=== PATIENT | female | born 1960 | race Caucasian/White ===

== ENCOUNTER 2020-01-07 16:22 | Emergency (ER) | payer OTHER, SELFPAY ==
--- NOTE | ~2020-01-07 | XR_ITS ---
EXAMINATION: XR chest 1V portable EXAM DATE: 01/07/2020 17:14 INDICATION: Cough, shortness of breath. TECHNIQUE: Frontal and lateral projections of the chest obtained and reviewed. Comparison is made to prior examination from 06/14/2016. FINDINGS: At least moderate emphysema, large left apical bullous disease unchanged. No confluent cons olidation, pneumothorax or pleural effusion suspected. The bones are osteopenic. There are bony dege nerative changes. Thoracolumbar compression fractures which have been treated with methylmethacrylate injection. There is no significant interval change. IMPRESSION: 1. Emphysema, bullous disease. 2. No acute cardiopulmonary findings. Reviewed, dictated and finalized at location [facility].
[2020-01-07 16:29] VITALS: PULSE 103; RESP 34; TEMP 36.6; O2SAT 98
--- NOTE | 2020-01-07 16:35 | ECG_ITS ---
Measurements Intervals [place] Rate: 102 P: 76 MO: 135 QRS: 62 QRSD: 84 T: 61 QT: 312 QTc: 407 Interpretive Statements SINUS TACHYCARDIA BASELINE ARTIFACT- AVL, V5-V6 BORDERLINE ECG Electronically Signed On 01-09-2020 8:36:49 CDT by Luke Mike D.O.
--- NOTE | 2020-01-07 16:39 | ED.SOB ---
HPI - SOB/Dyspnea General Chief Complaint: Shortness of Breath/Dyspnea <Francisca Griffith PA-C - Last Filed: 01/07/20 19:32> Stated Complaint: SOB HX COPD <Francisca Griffith PA-C - Last Filed: 01/07/20 19:32> Time Seen by Provider: 01/07/20 16:32 <Francisca Griffith PA-C - Last Filed: 01/07/20 19:32> Source: patient <JOSE DAVID Dorman Last Filed: 01/07/20 19:32> Mode of arrival: wheelchair <JOSE DAVID Dorman Last Filed: 01/07/20 19:32> Limitations: no limitations <JOSE DAVID Dorman Last Filed: 01/07/20 19:32> History of Present Illness HPI Narrative: This is a 59 year old female that presents to the ER for shortness of breath for the last week. Reports worsening yesterday. Reports a nonproductive cough that is normal for her with COPD. Also reports some rhinorrhea and sore throat. Denies fever or chest pain. <JOSE DAVID Dorman Last Filed: 01/07/20 19:32> Related Data Allergies/Adverse Reactions: Allergies Allergy/AdvReac Type Severity Reaction Status Date / Time aspirin Allergy Unknown UNKNOWN Verified 07/24/17 18:41 codeine Allergy Unknown Verified 06/14/16 12:31 ibuprofen Allergy Unknown Verified 06/14/16 12:31 iodine Allergy Unknown Verified 06/14/16 12:31 <Francisca Griffith PA-C - Last Filed: 01/07/20 19:32> Review of Systems Review of Systems: Narrative: CONSTITUTIONAL: Denies fever ENT: Reports rhinorrhea, congestion, sore throat CARDIOVASCULAR: Denies chest pain RESPIRATORY: Reports cough and dyspnea. <JOSE DAVID Dorman Last Filed: 01/07/20 19:32> All systems reviewed & are unremarkable except as noted in HPI and below <JOSE DAVID Dorman Last Filed: 01/07/20 19:32> PMFSH Past Medical History Medical History: Medical History (Updated 01/07/20 @ 19:30 by Francisca Griffith PA-C) History of COPD History of degenerative disc disease History of depression History of DVT (deep vein thrombosis) History of pulmonary embolism <Francisca Griffith PA-C - Last Filed: 01/07/20 19:32> Surgical History Surgical History: Surgical History (Updated 01/07/20 @ 17:09 by Francisca Griffith PA-C) History of appendectomy History of hysterectomy History of tonsillectomy <Francisca Griffith PA-C - Last Filed: 01/07/20 19:32> Social History Social History: Social History (Updated 01/07/20 @ 17:09 by Francisca Griffith PA-C) Smoking status: Current every day smoker <Francisca Griffith PA-C - Last Filed: 01/07/20 19:32> Exam Narrative: Exam Narrative: GENERAL: Well-appearing, thin, and in acute distress due to shortness of breath. HEAD: Normocephalic, atraumatic. EYES: EOMI. ENT: Nares clear, no rhinorrhea or epistaxis. Mucous membranes moist. Oropharynx without tonsillar hypertrophy exudate or other lesions. Bilateral TMs pearly zhao non-bulging NECK: Supple. No adenopathy or masses. CHEST: Tachypneic. Diffuse wheezes. No rales or rhonchi HEART: Regular rate and rhythm. No murmur heard. Normal peripheral pulses. EXTREMITIES: Normal range of motion. No edema. SKIN: Warm, dry, no rash. NEURO: No focal deficits. Alert and oriented x3. PSYCH: Normal mood and affect <Francisca Griffith PA-C - Last Filed: 01/07/20 19:32> Course Reevaluation(s) Reevaluation #1: Patient's lungs with improved aeration, now with only mild scattered wheezes <Francisca Griffith PA-C - Last Filed: 01/07/20 19:32> Date: 01/07/20 <Francisca Griffith PA-C - Last Filed: 01/07/20 19:32> Time: 19: <Francisca Griffith PA-C - Last Filed: 01/07/20 19:32> Vital Signs Vital signs: Vital Signs Temperature 36.6 C 01/07/20 16:29 Pulse Rate 103 H 01/07/20 16:29 Respiratory Rate 34 H 01/07/20 16:29 Pulse Oximetry 98 01/07/20 16:29 Temperature 36.7 C 01/07/20 19:47 Pulse Rate 98 01/07/20 19:47 Respiratory Rate 22 H 01/07/20 19:47 Blood Pressure 106/57 L 01/07/20 19:47 Pulse Oximetry 96 01/07/20 19:47 <Francisca L
[2020-01-07 16:45] VITALS: PULSE 86; RESP 28
[2020-01-07 17:01] LABS: Basophils Absolute Auto 0.1 K/mm3 (0.0-0.1); Basophils Percent Auto 1.2 % (0.2-1.2); Eosinophils Absolute Auto 0.3 K/mm3 (0-0.3); Eosinophils Percent Auto 2.4 % (0-4.4); Hematocrit 44.6 % (37.0-47.0); Hemoglobin 14.6 g/dL (12.0-15.0); Immature Granulocyte Absolute 0.02 K/mm3 (0.00-0.031); Immature Granulocyte Percent A 0.2 % (0-0.5); Lymphocytes Absolute Auto 5.14 K/mm3 (0.9-3.2); Lymphocytes Percent Auto 48.9 % (18.3-44.2); Mean Corpuscular HGB Conc 32.7 g/dl (32-36); Mean Corpuscular Hemoglobin 30.1 pg (26-34); Mean Platelet Volume 9.6 fl (7.4-10.4); Monocytes Percent Auto 9.8 % (2.6-8.5); Neutrophils Percent Auto 37.5 % (45.5-73.1); Platelet Count Result 488 k/mm3 (150-375); Red Blood Count 4.85 M/mm3 (4.2-5.4); Red Cell Distribution Width 12.5 % (11.5-14.5); White Blood Count 10.5 K/mm3 (4.5-10.0)
[2020-01-07] MEDS: methylPREDNISolone SOD SUCC 125 MG VIAL IV PUSH (17:14)
[2020-01-07 17:15] LABS: Alanine Aminotransferase 18 U/L (4-35); Albumin Level 4.3 g/dL (3.5-5.1); Alkaline Phosphatase 63 U/L (38-126); Aspartate Amino Transferase 22 U/L (14-36); Bilirubin,Total 0.2 mg/dL (0.2-1.3); Blood Urea Nitrogen 19 mg/dL (7-17); CRP 0.9 mg/dL (<1.0); Calcium 9.4 mg/dL (8.4-10.2); Carbon Dioxide 29 mmol/L (22-30); Chloride 102 mmol/L (98-107); Estimated CRCL calculation 57 ml/min; Estimated Glomerular Filt Rate > 60; Glucose 73 mg/dL (65-105); Lactate Dehydrogenase 345 U/L (313-618); Potassium 4.1 mmol/L (3.4-5.0); Sodium 137 mmol/L (137-145)
[2020-01-07 17:20] LABS: Alveolar/Arterial O2 Gradient 25.7 mmHg; Base Excess ABG 1.8 mEq/l (+/-2.0); Device ROOM AIR; Fractional Inspired Oxygen 21 %; HCO3 ABG 27.4 mEq/l (22.0-26.0); Oxygen Content ABG 18.8 %vol (16.0-22.0); Oxygen Saturation ABG 93.2 % (95.0-100.0); Oxyhemoglobin 91.7 % THb (90.0-100.0); PCO2 ABG 46.8 mmHg (35.0-45.0); PO2 FiO2 Ratio Arterial Blood 3.24 %; Site Drawn RIGHT BRACHIAL; Total Hemoglobin 14.6 g/dL (12.0-18.0); pH ABG 7.386 (7.350-7.450)
[2020-01-07] MEDS: ALBUTEROL SULFATE NEB 2.5 MG/0.5 ML INH 5 MG INHALATION (17:46)
[2020-01-07] MEDS: IPRATROPIUM BR 0.02% INH SOLN 0.5 MG/2.5 ML VIAL INHALATION (17:47)
[2020-01-07 17:48] VITALS: PULSE 90; RESP 24
[2020-01-07] MEDS: IPRATROPIUM BR 0.02% INH SOLN 0.5 MG/2.5 ML VIAL 1 MG INHALATION (18:10)
[2020-01-07] MEDS: ALBUTEROL SULFATE NEB 2.5 MG/0.5 ML INH 10 MG INHALATION (18:10)
[2020-01-07 19:25] VITALS: BP 105/69; PULSE 98; RESP 22; O2SAT 96
[2020-01-07 19:47] VITALS: BP 106/57; PULSE 98; RESP 22; TEMP 36.7; O2SAT 96
== END 2020-01-07 19:48 | disposition home or self-care (01) ==
PROVIDERS: Physician Assistant; Emergency Provider Emergency Medicine; PCP Family Medicine
DX: J44.9 Chronic obstructive pulmonary disease, unspecified (principal); Z86.718 Personal history of other venous thrombosis and embolism; Z86.11 Personal history of tuberculosis; F17.200 Nicotine dependence, unspecified, uncomplicated
CPT/HCPCS: 36415; 36600; 71045; 80053; 82728; 82805; 83605; 83615; 85025; 86140; 93005; 94640; 96374; 99284; J2930

== ENCOUNTER 2020-02-15 01:22 | Emergency (ER) | payer OTHER, SELFPAY ==
--- NOTE | ~2020-02-15 | CT_ITS ---
EXAMINATION: CT brain wo con DATE: 02/15/2020 02:44 INDICATION: Headache. TECHNIQUE: Computed tomography (CT) of the head was performed without intravenous contrast. The mA wa s adjusted according to patient size. Iterative reconstruction technique was employed. Exam dose: 60 5.33 mGy-cm total exam DLP. COMPARISON: None FINDINGS: Examination is limited by streak motion artifact. There is There are bilateral carotid siphon internal carotid artery calcifications. No intracranial mass lesion or hemorrhage or cerebrovascular accident is evident. No midline shift or mass effects. Normal ventricular size. No subdural or epidural hematoma. No orbital mass lesion. No fracture or bone destruction of the cranial vault. Focal opacification of the anterior right ethmoid region. The paranasal sinuses and mastoid air cells are otherwise unremarkable. IMPRESSION: No significant acute intracranial abnormality Cerebral atherosclerosis Reviewed, dictated and finalized at [facility]. Reviewed, dictated and finalized at location [facility].
[2020-02-15 01:29] VITALS: BP 106/58; PULSE 117; RESP 32; TEMP 36.8; O2SAT 96
--- NOTE | 2020-02-15 01:33 | ECG_ITS ---
Measurements Intervals [place] Rate: 114 P: 76 [place]: 123 QRS: 75 QRSD: 86 T: 69 QT: 323 QTc: 446 Interpretive Statements SINUS TACHYCARDIA BASELINE ARTIFACT- I, III, AVL, V2-V6 ABNORMAL ECG Electronically Signed On 02-15-2020 7:56:14 CDT by Luke Mike D.O.
--- NOTE | 2020-02-15 01:38 | ED.GENADULT ---
HPI - General Adult General Chief complaint: Shortness of Breath/Dyspnea Stated complaint: SOB/TAO Time Seen by Provider: 02/15/20 01:26 History of Present Illness HPI narrative: Patient presents via EMS for acute psychosis. She woke her up at home and told him that he should do all these things when she dies. She had friends over and he suspects they did drugs including methamphetamines. She cannot sit still, she is complaining of a headache, she is shaking her arms and legs, her mouth appears to have action similar to tar dive dyskinesia, she has no teeth, and she is complaining of a headache. She said she took 3 breathing treatments and that is what is making her so jittery. Onset (ago): hour(s) Severity: severe Related Data Allergies Allergy/AdvReac Type Severity Reaction Status Date / Time aspirin Allergy Unknown UNKNOWN Verified 07/24/17 18:41 codeine Allergy Unknown Verified 06/14/16 12:31 ibuprofen Allergy Unknown Verified 06/14/16 12:31 iodine Allergy Unknown Verified 06/14/16 12:31 Review of Systems Review of Systems: Narrative: Unable to get a full review of systems due to the patient's acute mental status. [facility] Past Medical History Medical History History of COPD History of degenerative disc disease History of depression History of DVT (deep vein thrombosis) History of pulmonary embolism Surgical History Surgical History History of appendectomy History of hysterectomy History of tonsillectomy Social History Social History (Updated 02/15/20 @ 01:40 by Bertha Gross MD) Smoking status: Current every day smoker Substance use: current Substance use type: methamphetamine Exam Narrative: Exam Narrative: GENERAL: Cachectic woman with disheveled hair and no teeth, tar dive dyskinesia, cannot stop moving her arms and legs, speaks in short sentences and few words. HEAD: Normocephalic, atraumatic. EYES: PERRLA and EOMI. right eye remains shut. ENT: Nares clear, no rhinorrhea or epistaxis. Mucous membranes moist. NECK: Supple. CHEST: Clear to auscultation. No respiratory distress. HEART: Regular rate and rhythm. No murmur heard. Normal peripheral pulses. ABDOMEN: Soft, nontender, nondistended, normal active bowel sounds. EXTREMITIES: Normal range of motion. No edema. SKIN: Warm, dry, no rash. NEURO: No focal deficits. Alert. PSYCH: Manic. Course Reevaluation(s) Reevaluation #1: Woke the patient up and asked if she is feeling better, and asked if she wanted to go home, she says yes. Date: 02/15/20 Time: 03:24 Vital Signs Vital signs: Vital Signs Temperature 98.2 F 02/15/20 01:29 Pulse Rate 117 H 02/15/20 01:29 Respiratory Rate 32 H 02/15/20 01:29 Blood Pressure 106/58 L 02/15/20 01:29 Pulse Oximetry 96 02/15/20 01:29 Temperature 98.2 F 02/15/20 01:29 Pulse Rate 117 H 02/15/20 01:29 Respiratory Rate 32 H 02/15/20 01:29 Blood Pressure 106/58 L 02/15/20 01:29 Pulse Oximetry 96 02/15/20 01:29 Medical Decision Making Medical Records Medical records reviewed: Yes I reviewed the patient's medical records. Vital Signs Vital Signs: Vital Signs Temperature 98.2 F 02/15/20 01:29 Pulse Rate 117 H 02/15/20 01:29 Respiratory Rate 32 H 02/15/20 01:29 Blood Pressure 106/58 L 02/15/20 01:29 Pulse Oximetry 96 02/15/20 01:29 Temperature 98.2 F 02/15/20 01:29 Pulse Rate 117 H 02/15/20 01:29 Respiratory Rate 32 H 02/15/20 01:29 Blood Pressure 106/58 L 02/15/20 01:29 Pulse Oximetry 96 02/15/20 01:29 Lab Data Lab results reviewed: Yes I reviewed the patient's lab results. Result diagrams: 02/15/20 01:41 02/15/20 01:41 Labs: Lab Results 02/15/20 02/15/20 02/15/20 Range/Units 01:41 01:41 01:41 WBC 17.6 H (4.5-10.0) K/mm3 RBC 4.40 (4.2-5.4) M/mm3 Hgb 13.4 (12.0-15.0) g/dL Hct
[2020-02-15] MEDS: SODIUM CHLORIDE 0.9% IV 1,000 ML 999 ML IV CONT (01:43)
[2020-02-15] MEDS: LORAZEPAM INJ 2 MG/ML VIAL 0.5 MG IV PUSH (01:43)
[2020-02-15 01:47] LABS: Basophils Absolute Auto 0.1 K/mm3 (0.0-0.1); Basophils Percent Auto 0.8 % (0.2-1.2); Eosinophils Absolute Auto 0.3 K/mm3 (0-0.3); Eosinophils Percent Auto 1.6 % (0-4.4); Hematocrit 40.4 % (37.0-47.0); Hemoglobin 13.4 g/dL (12.0-15.0); Immature Granulocyte Absolute 0.05 K/mm3 (0.00-0.031); Immature Granulocyte Percent A 0.3 % (0-0.5); Lymphocytes Absolute Auto 5.35 K/mm3 (0.9-3.2); Lymphocytes Percent Auto 30.3 % (18.3-44.2); Mean Corpuscular HGB Conc 33.2 g/dl (32-36); Mean Corpuscular Hemoglobin 30.5 pg (26-34); Mean Corpuscular Volume 91.8 fl (80-100); Mean Platelet Volume 9.6 fl (7.4-10.4); Monocytes Absolute Auto 1.7 K/mm3 (0.1-0.6); Monocytes Percent Auto 9.9 % (2.6-8.5); Neutrophils Absolute Auto 10.1 K/mm3 (1.3-6.7); Neutrophils Percent Auto 57.1 % (45.5-73.1); Platelet Count Result 530 k/mm3 (150-375); Red Cell Distribution Width 12.5 % (11.5-14.5); White Blood Count 17.6 K/mm3 (4.5-10.0)
[2020-02-15 02:03] LABS: Alanine Aminotransferase 20 U/L (4-35); Albumin Level 4.3 g/dL (3.5-5.1); Alkaline Phosphatase 62 U/L (38-126); Aspartate Amino Transferase 36 U/L (14-36); Bilirubin,Total 0.7 mg/dL (0.2-1.3); Blood Urea Nitrogen 35 mg/dL (7-17); Carbon Dioxide 26 mmol/L (22-30); Chloride 104 mmol/L (98-107); Estimated CRCL calculation 52 ml/min; Estimated Glomerular Filt Rate > 60; Glucose 102 mg/dL (65-105); Potassium 4.5 mmol/L (3.4-5.0); Sodium 136 mmol/L (137-145)
[2020-02-15 02:14] LABS: Troponin I < 0.012 ng/mL (0.000-0.034)
[2020-02-15 02:19] LABS: Barbiturate Screen Urine Negative (Negative); Benzodiazepines Screen Urine Negative (Negative)
[2020-02-15 02:21] LABS: Ethanol < 10 mg/dL (<10)
[2020-02-15 02:24] LABS: Cannabinoid Screen Urine Positive (Negative); Cocaine Screen Urine Negative (Negative); Methadone Screen Urine Negative (Negative); Opiate Screen Urine Positive (Negative); Phencyclidine Screen Urine Negative (Negative)
[2020-02-15 02:32] LABS: Amphetamine Screen Urine Positive (Negative)
[2020-02-15 02:34] LABS: Add Urine Microscopic? YES; Appearance Urine Clear (Clear); Bilirubin Urine Negative (Negative); Blood Urine Negative (Negative); Color Urine Yellow (Yellow); Glucose Urine UA Negative (Negative); Ketones Urine Trace mg/dL (Negative); Leukocyte Esterase Ur Negative LEU/UL (Negative); Mucus Urine Rare /lpf; Nitrate Urine Negative (Negative); Protein Urine Negative (Negative); Squamous Epithelial Cell Urine Rare /hpf (Few); Urobilinogen Urine Negative mg/dL (<2.0); WBC Urine 0-3 /hpf
[2020-02-15 03:50] VITALS: BP 96/76; PULSE 98; RESP 18; O2SAT 97
== END 2020-02-15 03:51 | disposition home or self-care (01) ==
PROVIDERS: Emergency Provider Emergency Medicine; PCP Family Medicine
DX: F15.10 Other stimulant abuse, uncomplicated (principal); J44.1 Chronic obstructive pulmonary disease with (acute) exacerbation; Z86.718 Personal history of other venous thrombosis and embolism; Z86.711 Personal history of pulmonary embolism; F17.200 Nicotine dependence, unspecified, uncomplicated; R00.0 Tachycardia, unspecified
CPT/HCPCS: 36415; 51701; 70450; 80053; 80307; 81001; 84484; 85025; 93005; 96361; 96374; 99284; J2060; J7030

== ENCOUNTER 2023-05-29 17:40 | Emergency (ER) | payer OTHER, SELFPAY ==
[2023-05-29 17:43] VITALS: BP 173/76; PULSE 113; RESP 28; TEMP 36.7; O2SAT 83
--- NOTE | 2023-05-29 17:45 | ED.GENADULT ---
HPI - General Adult General Chief complaint: Shortness of Breath/Dyspnea Stated complaint: SOB Time Seen by Provider: 05/29/23 17:45 Source: patient, RN notes reviewed and old records reviewed Mode of arrival: ambulatory Limitations: no limitations History of Present Illness HPI narrative: 62-year-old female with a history of COPD and is a current smoker presents for shortness of breath. Patient states it has been going on for 4 days since she fell off a step stool and hit the front of her chest. Audible wheezing and coarseness noted. No more than 1 or 2 words at a sentence. Patient appears toxic, pale, lips were cyanotic Onset (ago): day(s) (4) Treatments prior to arrival: none Related Data Home Medications Medication Instructions Recorded Confirmed albuterol sulfate 90 mcg/actuation 2 puff inhalation Q6-8H PRN sob 05/29/23 05/29/23 aerosol inhaler buspirone 15 mg tablet 15 mg PO DAILY 05/29/23 05/29/23 fluticasone 250 mcg-salmeterol 50 1 inh inhalation DAILY 05/29/23 05/29/23 mcg/dose blistr powdr for inhalation (Advair Diskus) fluticasone propionate 50 2 spray intranasal DAILY 05/29/23 05/29/23 mcg/actuation nasal spray,suspension montelukast 10 mg tablet 10 mg PO DAILY 05/29/23 05/29/23 Allergies Allergy/AdvReac Type Severity Reaction Status Date / Time aspirin Allergy Unknown UNKNOWN Verified 05/29/23 18:07 codeine Allergy Unknown Unknown Verified 05/29/23 18:07 ibuprofen Allergy Unknown Unknown Verified 05/29/23 18:07 iodine Allergy Unknown Unknown Verified 05/29/23 18:07 Review of Systems Review of Systems: All systems reviewed & are unremarkable except as noted in HPI and below Constitutional: Constitutional: Reports no additional constitutional complaints Eyes: Eyes: Reports no additional eye complaints ENT: Reports system reviewed and no additional complaints, except as documented Cardiovascular: Cardiovascular: Reports as per HPI, Reports chest pain and Denies dyspnea Respiratory: Respiratory: Reports as per HPI, Denies chest congestion, Denies cough, Reports excessive phlegm production, Reports pain on inspiration, Reports pain with cough, Reports dyspnea, Reports dyspnea on exertion and Reports wheezing Gastrointestinal: Gastrointestinal: Reports no additional gastrointestinal complaints, Denies abdominal pain, Denies nausea and Denies vomiting Musculoskeletal: Musculoskeletal: Reports no additional musculoskeletal complaints Integumentary/Breasts: Skin/Breast: Reports system reviewed and no additional complaints, except as docu Neurologic: Reports system reviewed and no additional complaints, except as documented Psychiatric: Psychiatric: Reports no additional psychiatric complaints Allergic/Immunologic: Allergic/Immunologic: Reports no additional allergic/immunologic complaints [facility] Past Medical History Medical History History of COPD History of degenerative disc disease History of depression History of DVT (deep vein thrombosis) History of pulmonary embolism Surgical History Surgical History History of appendectomy History of hysterectomy History of tonsillectomy Social History Social History Smoking status: Current every day smoker Substance use: current Substance use type: methamphetamine Comments At the time of my signature, I reviewed and agree with the nursing past medical, surgical, social, and family history. There is no relevant family history pertinent to the patient complaint. Exam Const: General: cooperative, no acute distress, well developed, alert, ill appearing and uncomfortable Nutritional Appearance: thin Orientation/consciousness: patient oriented x3 Limitations: no limitations HENMT: Head: normal to inspection Ears: hearing grossly normal bilaterally and external ears normal
[2023-05-29] MEDS: ALBUTEROL SULFATE NEB 2.5 MG/3 ML INH INHALATION (17:48)
[2023-05-29] MEDS: IPRATROPIUM BR 0.02% INH SOLN 0.5 MG/2.5 ML VIAL INHALATION (17:48)
--- NOTE | 2023-05-29 19:03 | ECG_ITS ---
Measurements Intervals [place] Rate: 112 P: 78 [place]: 120 QRS: 61 QRSD: 83 T: 73 QT: 315 QTc: 431 Interpretive Statements SINUS TACHYCARDIA VENTRICULAR PREMATURE COMPLEXES RIGHT ATRIAL ENLARGEMENT POSSIBLE LEFT ATRIAL ENLARGEMENT BASELINE ARTIFACT- I, II, III, AVR, AVL, AVF, V1-V2 ABNORMAL ECG COMPARED TO ECG 02/15/2020 01:31:23 NO SIGNIFICANT CHANGES Electronically Signed On 05-30-2023 6:20:36 CDT by Luke Mike D.O.
== END 2023-05-29 17:48 | disposition short-term general hospital (02) ==
PROVIDERS: Emergency Provider Nurse Practitioner; PCP Family Medicine
DX: R06.03 Acute respiratory distress (principal); R94.31 Abnormal electrocardiogram [ECG] [EKG]; F17.290 Nicotine dependence, other tobacco product, uncomplicated; J44.9 Chronic obstructive pulmonary disease, unspecified; Z86.718 Personal history of other venous thrombosis and embolism; Z86.711 Personal history of pulmonary embolism; F32.A Depression, unspecified
CPT/HCPCS: 93005; 94640; 99215; G0463

== ENCOUNTER 2023-05-29 18:07 | Inpatient (IN) | payer OTHER, SELFPAY ==
[2023-05-29] VITALS (9 sets, daily range): BP systolic 118–137; BP diastolic 71–87; PULSE 102–117; RESP 21–32; TEMP 36.2–36.8; O2SAT 93–98; BMI 15.7
--- NOTE | ~2023-05-29 | XR_ITS ---
XR chest 1V portable DATE: 05/29/2023 18:43 INDICATION: Shortness of breath TECHNIQUE: Portable AP chest on 05/29/2023 at 1842 hours COMPARISON: January 07, 2020 portable AP chest at 1713 hours FINDINGS: Bilateral hyperinflation relatively sparse vasculature in the upper lobes, consistent with bullous emphysema. Since January 07, 2020 hours. She infiltrate in the right mid and both lower lung zones. Differential d iagnosis includes pneumonia and pulmonary edema. Heart size is likely within normal limits. Is aortic calcification. Diffuse osteopenia. Multiple thoracic spine fractures. Status post vertebroplasty at T9, T10, L1 and L3. IMPRESSION: Patchy infiltrate in the right mid and both lower lung zones; diffusion diagnosis include s bilateral pneumonia, pulmonary edema is bullous emphysema Reviewed, dictated and finalized at location [facility]. IMPRESSION: Patchy infiltrate in the right mid and both lower lung zones; diffu andriy diagnosis includes bilateral pneumonia, pulmonary edema is bullous emphyse ma
--- NOTE | 2023-05-29 18:17 | ECG_ITS ---
Measurements Intervals [place] Rate: 110 P: 75 [place]: 130 QRS: 61 QRSD: 81 T: 72 QT: 332 QTc: 450 Interpretive Statements SINUS TACHYCARDIA VENTRICULAR TRIGEMINY POSSIBLE RIGHT ATRIAL ENLARGEMENT POSSIBLE LEFT ATRIAL ENLARGEMENT ABNORMAL ECG COMPARED TO ECG 05/29/2023 17:47:00 NO SIGNIFICANT CHANGES Electronically Signed On 05-30-2023 6:24:33 CDT by Luke Mike D.O.
--- NOTE | 2023-05-29 18:18 | ED.SOB ---
HPI - SOB/Dyspnea General Chief Complaint: Shortness of Breath/Dyspnea Stated Complaint: SOB Source: patient, EMS, RN notes reviewed and old records reviewed Mode of arrival: EMS History of Present Illness HPI Narrative: This is a 62 year old female with history of COPD who presents for evaluation of shortness of breath. PAtient reports that she accidentally fell 4 days ago hitting her chest . She reports she has been having pain and shortness of breath since this fall. She has been using neb tx at home without relief. She went to urgent care today and her oxygen saturation was 80% on room air. Patient denies chronic oxygen use. She was given DuoNeb at . EMS reports patient was tachypneic, bilateral rales and placed on CPAP. Patient reports she feels better on CPAP Related Data Home Medications Medication Instructions Recorded Confirmed albuterol sulfate 90 mcg/actuation 2 puff inhalation Q6-8H PRN sob 05/29/23 05/29/23 aerosol inhaler buspirone 15 mg tablet 15 mg PO DAILY 05/29/23 05/29/23 fluticasone 250 mcg-salmeterol 50 1 inh inhalation DAILY 05/29/23 05/29/23 mcg/dose blistr powdr for inhalation (Advair Diskus) fluticasone propionate 50 2 spray intranasal DAILY 05/29/23 05/29/23 mcg/actuation nasal spray,suspension montelukast 10 mg tablet 10 mg PO DAILY 05/29/23 05/29/23 Allergies Allergy/AdvReac Type Severity Reaction Status Date / Time aspirin Allergy Unknown UNKNOWN Verified 05/29/23 18:07 codeine Allergy Unknown Unknown Verified 05/29/23 18:07 ibuprofen Allergy Unknown Unknown Verified 05/29/23 18:07 iodine Allergy Unknown Unknown Verified 05/29/23 18:07 Review of Systems Constitutional: Constitutional: Denies weakness Cardiovascular: Cardiovascular: Reports chest pain, Denies syncope, Denies rapid heart rate, Denies irregular heart rhythm, Denies leg edema and Reports dyspnea Respiratory: Respiratory: Denies chest congestion, Denies hemoptysis, Denies excessive phlegm production and Reports dyspnea Gastrointestinal: Gastrointestinal: Denies abdominal pain, Denies hematochezia, Denies diarrhea and Denies vomiting Genitourinary: Genitourinary: Denies hematuria and Denies dysuria Musculoskeletal: Musculoskeletal: Denies joint swelling, Denies loss of height and Denies muscle weakness Neurologic: Denies syncope, Denies focal weakness and Denies weakness PMFSH Past Medical History Medical History (Updated 05/29/23 @ 21:09 by Roes Paulino MD) History of COPD History of degenerative disc disease History of depression History of DVT (deep vein thrombosis) History of pulmonary embolism Surgical History Surgical History History of appendectomy History of hysterectomy History of tonsillectomy Social History Social History Smoking status: Current every day smoker Substance use: current Substance use type: methamphetamine Exam Const: General: alert and ill appearing acutely Nutritional Appearance: thin Orientation/consciousness: patient oriented x3 HENMT: Head: normal to inspection Chest: Other: no chest bruising Resp: Effort & Inspection: labored Auscultation: rhonchi throughout Cardio: Rate: tachycardic Rhythm: regular rhythm Heart sounds: no murmurs GI: GI Palp: Yes Soft to palpation, No Tenderness to palpation present (GI), No Guarding due to palpation present (GI) and No Rigid due to palpation Skin: General skin exam: normal color Rashes: no rashes Wounds: no wounds Neuro: General: patient oriented x3, moves all extremities and CN's II-XI intact bilaterally Extrem: General: normal to inspection Psych: Mental Status: mental status grossly normal Affect: normal affect Attitude: cooperative Course Reevaluation(s) Reevaluation #1: I Discussed with patient that she will be admitted for treatment of pneumonia. She wants to take off BI
[2023-05-29 18:33] LABS: Alveolar/Arterial O2 Gradient 125.7 mmHg; Base Excess ABG -0.2 mEq/l (+/-2.0); Carboxyhemoglobin 1.2 % THb (0-2.0); Fractional Inspired Oxygen 35 %; HCO3 ABG 23.9 mEq/l (22.0-26.0); Methemoglobin ABG 0.1 %THb (0-1.5); Oxygen Saturation ABG 96.1 % (95.0-100.0); Oxyhemoglobin 94.3 % THb (90.0-100.0); PCO2 ABG 37.6 mmHg (35.0-45.0); PO2 ABG 80.1 mmHg (80.0-100.0); PO2 FiO2 Ratio Arterial Blood 2.29 %; Reduced Hemoglobin 4.4 %THb (0-5.0); Total Hemoglobin 15.1 g/dL (12.0-18.0); pH ABG 7.421 (7.350-7.450)
[2023-05-29 18:34] LABS: Device NON-INVASIVE VENT; Modified Allen's Test Pass; Non-Invasive Inspiratory Pressure 10 CMH2O; Non-Invasive Vent Rate 16 /MIN; Site Drawn LEFT RADIAL
[2023-05-29 18:35] LABS: Non-Invasive Expiratory Pressure 5 CMH2O
[2023-05-29] MEDS: ALBUTEROL SULFATE NEB 2.5 MG/3 ML INH 10 MG INHALATION (18:39)
[2023-05-29 19:25] LABS: Basophils Absolute Auto 0.1 K/mm3 (0.0-0.1); Basophils Percent Auto 0.8 % (0.2-1.2); Eosinophils Absolute Auto 0.4 K/mm3 (0-0.3); Eosinophils Percent Auto 2.8 % (0-4.4); Hematocrit 44.7 % (37.0-47.0); Hemoglobin 14.4 g/dL (12.0-15.0); Immature Granulocyte Absolute 0.04 K/mm3 (0.00-0.031); Immature Granulocyte Percent A 0.3 % (0-0.5); Lymphocytes Absolute Auto 3.86 K/mm3 (0.9-3.2); Lymphocytes Percent Auto 25.5 % (18.3-44.2); Mean Corpuscular HGB Conc 32.2 g/dl (32-36); Mean Corpuscular Hemoglobin 29.4 pg (26-34); Mean Corpuscular Volume 91.2 fl (80-100); Monocytes Absolute Auto 1.2 K/mm3 (0.1-0.6); Monocytes Percent Auto 8.1 % (2.6-8.5); Neutrophils Absolute Auto 9.5 K/mm3 (1.3-6.7); Neutrophils Percent Auto 62.5 % (45.5-73.1); Platelet Count Result 485 k/mm3 (150-375); Red Cell Distribution Width 13.1 % (11.5-14.5); White Blood Count 15.1 K/mm3 (4.5-10.0)
[2023-05-29 19:38] LABS: Alanine Aminotransferase 17 U/L (6-35); Albumin Level 4.2 g/dL (3.5-5.1); Alkaline Phosphatase 55 U/L (38-126); Anion Gap 7 mmol/L (8-16); Aspartate Amino Transferase 23 U/L (14-36); Bilirubin,Total 0.5 mg/dL (0.2-1.3); Blood Urea Nitrogen 20 mg/dL (7-17); Carbon Dioxide 26 mmol/L (22-30); Chloride 105 mmol/L (98-107); Estimated CRCL calculation 58 ml/min; Estimated Glomerular Filt Rate > 60; Glucose 96 mg/dL (65-110); Lipase 29 U/L (23-300); Magnesium 2.4 mg/dL (1.6-2.3); Potassium 4.2 mmol/L (3.4-5.0); Sodium 138 mmol/L (137-145)
[2023-05-29 19:39] LABS: Prothrombin Time 13.1 Seconds (11.1-14.7)
[2023-05-29 19:40] LABS: Partial Thromboplastin Time 27.8 SECONDS (22.3-36.8)
[2023-05-29 19:50] LABS: NT Pro B Type Natriuretic Pept 179 pg/mL (19.9-100); Troponin I 0.015 ng/mL (0.000-0.034)
[2023-05-29 20:10] LABS: SARS-CoV-2 RNA PCR Negative (Negative)
[2023-05-29] MEDS: methylPREDNISolone SOD SUCC 125 MG VIAL IV PUSH (20:26)
[2023-05-29] MEDS: SODIUM CHLORIDE 0.9% IV 1,000 ML 999 ML IV CONT (20:27)
[2023-05-29] MEDS: AZITHROMYCIN 500 MG/NS 250 ML 500 MG/250 ML BAG 250 MG IVPB (21:40)
--- NOTE | 2023-05-29 22:45 | PM.IMHP ---
H&P: HPI History of Present Illness Date/Time: 05/29/23 22:45 Chief Complaint: Patient brought to the ER for evaluation from urgent care with? productive cough and shortness of breath which is worsening over the last 4 days Narrative: Our patient is an 62 years old female who is complaining of? shortness of breath with productive cough which began 4 days ago and is slowly getting worse to the point that patient went to the urgent care for evaluation. Her O2 saturations were 80% on room air at urgent care. DuoNeb treatment was given in the urgent care, EMS was called and patient was sent? to the ER for evaluation.? His O2 sats were 90% on room air at home which responded to oxygen via nasal cannula. Workup was done in the ED which showed finding consistent with bilateral pneumonia.? Patient was started on CPAP enroute to the ER. Her O2 sats were 83% on arrival at the ER. Patient was given IV Solu-Medrol, started on IV antibiotics and breathing treatment in the ER and feels a little better.? She is being admitted in the hospital for further medical management. She is underweight with protein calorie malnutrition hence dietary consult given. PTOT consult given to help with her ambulation. Review of Systems Review of Systems: patient complains of worsening shortness of breath, cough, sputum and weakness. She denies any chest pain, palpitations, fever rigor chills, nausea or vomiting All systems reviewed & are unremarkable except as noted in HPI and below PMFSH Past Medical History Medical History (Updated 05/29/23 @ 23:10 by Arun Pepe MD) COPD (chronic obstructive pulmonary disease) History of COPD History of degenerative disc disease History of depression History of DVT (deep vein thrombosis) History of pulmonary embolism Protein calorie malnutrition Surgical History Surgical History History of appendectomy History of hysterectomy History of tonsillectomy Social History Social History Smoking status: Current every day smoker Substance use: current Substance use type: methamphetamine Meds Home Medications and Allergies Home Medications Medication Instructions Recorded Confirmed Type albuterol sulfate 90 mcg/actuation 2 puff inhalation Q6-8H PRN sob 05/29/23 05/29/23 History aerosol inhaler buspirone 15 mg tablet 15 mg PO DAILY 05/29/23 05/29/23 History fluticasone 250 mcg-salmeterol 50 1 inh inhalation DAILY 05/29/23 05/29/23 History mcg/dose blistr powdr for inhalation (Advair Diskus) fluticasone propionate 50 2 spray intranasal DAILY 05/29/23 05/29/23 History mcg/actuation nasal spray,suspension montelukast 10 mg tablet 10 mg PO DAILY 05/29/23 05/29/23 History Allergies Allergy/AdvReac Type Severity Reaction Status Date / Time aspirin Allergy Unknown UNKNOWN Verified 05/29/23 18:07 codeine Allergy Unknown Unknown Verified 05/29/23 18:07 ibuprofen Allergy Unknown Unknown Verified 05/29/23 18:07 iodine Allergy Unknown Unknown Verified 05/29/23 18:07 Vital Signs Vital Signs - 24 hr 05/29/23 18:10 05/29/23 18:16 05/29/23 18:15 Temperature 36.8 C Pulse Rate 115 H 111 H Respiratory Rate 32 H 25 H Blood Pressure 118/82 137/77 Pulse Oximetry 98 98 Oxygen Delivery CPAP BiPAP 05/29/23 18:30 05/29/23 18:54 05/29/23 21:39 Temperature Pulse Rate 110 H 112 H 107 H Respiratory Rate 27 H 32 H 21 H Blood Pressure 119/81 Pulse Oximetry 97 98 Oxygen Delivery BiPAP 05/29/23 22:26 Temperature Pulse Rate 117 H Respiratory Rate 23 H Blood Pressure 131/87 Pulse Oximetry 97 Oxygen Delivery Exam Narrative: PHYSICAL EXAMINATION: Vital signs: Please see the chart General physical exam: patient feels very tired and fatigued, using BiPAP in the ER while sitting in bed Head/eyes: Atraumatic, EOMI, PERRLA ENT: Moist mucous membranes, nasal pa
[2023-05-30] VITALS (22 sets, daily range): BP systolic 107–126; BP diastolic 60–92; PULSE 101–132; RESP 16–25; TEMP 36.1–36.9; O2SAT 91–96; BMI 15.7
[2023-05-30] MEDS: SODIUM CHLORIDE 0.9% IV 1,000 ML 125 ML IV CONT ×2 (00:03→08:11)
--- NOTE | 2023-05-30 00:18 | ADMGEN ---
This patient, Ghazal Ferrera, was admitted to IMU Room 211-01 at 2248. Patient/family oriented to hospital policies and general routines including ID bracelet, bed and alarms, visiting hours, pain management, procedures, bathroom and other care routines, personal items, smoking policy, room service/diet, and visiting hours. Information on how to activate the Rapid Response Team has been discussed. Patient/Family are encouraged to report perceived risks to care and to ask questions if they do not understand what they are told or what they should do.
[2023-05-30] MEDS: ALBUTEROL SULFATE NEB 2.5 MG/3 ML INH INHALATION ×4 (01:55→20:00)
[2023-05-30] MEDS: IPRATROPIUM BR 0.02% INH SOLN 0.5 MG/2.5 ML VIAL INHALATION ×4 (01:55→20:00)
[2023-05-30] MEDS: methylPREDNISolone SOD SUCC 125 MG VIAL 60 MG IV PUSH ×2 (03:00→08:18)
[2023-05-30 05:16] LABS: Basophils Absolute Auto 0.1 K/mm3 (0.0-0.1); Basophils Percent Auto 0.3 % (0.2-1.2); Hematocrit 39.1 % (37.0-47.0); Hemoglobin 12.8 g/dL (12.0-15.0); Immature Granulocyte Absolute 0.07 K/mm3 (0.00-0.031); Immature Granulocyte Percent A 0.5 % (0-0.5); Lymphocytes Absolute Auto 1.11 K/mm3 (0.9-3.2); Lymphocytes Percent Auto 7.8 % (18.3-44.2); Mean Corpuscular HGB Conc 32.7 g/dl (32-36); Mean Corpuscular Hemoglobin 29.8 pg (26-34); Mean Corpuscular Volume 90.9 fl (80-100); Mean Platelet Volume 9.5 fl (7.4-10.4); Monocytes Absolute Auto 0.1 K/mm3 (0.1-0.6); Monocytes Percent Auto 0.6 % (2.6-8.5); Neutrophils Percent Auto 90.8 % (45.5-73.1); Platelet Count Result 436 k/mm3 (150-375); Red Cell Distribution Width 13.2 % (11.5-14.5); White Blood Count 14.3 K/mm3 (4.5-10.0)
[2023-05-30 05:28] LABS: Alanine Aminotransferase 17 U/L (6-35); Albumin Level 3.5 g/dL (3.5-5.1); Alkaline Phosphatase 49 U/L (38-126); Anion Gap 7 mmol/L (8-16); Aspartate Amino Transferase 18 U/L (14-36); Bilirubin,Total 0.4 mg/dL (0.2-1.3); Blood Urea Nitrogen 15 mg/dL (7-17); Calcium 8.3 mg/dL (8.4-10.2); Carbon Dioxide 24 mmol/L (22-30); Chloride 107 mmol/L (98-107); Estimated CRCL calculation 56 ml/min; Estimated Glomerular Filt Rate > 60; Glucose 156 mg/dL (65-110); Potassium 4.2 mmol/L (3.4-5.0); Sodium 138 mmol/L (137-145)
[2023-05-30] MEDS: MONTELUKAST SODIUM 10 MG TABLET PO (08:17)
[2023-05-30] MEDS: ENOXAPARIN 40 MG/0.4 ML SYRINGE SUB-Q (08:17)
[2023-05-30] MEDS: busPIRone HCL 5 MG TABLET 15 MG PO ×3 (08:17→16:18)
[2023-05-30] MEDS: FLUTICASONE PROPIONATE 0.05% NA SPR 16 GM BTL (*BKC) 2 SPRAY NASAL (08:26)
--- NOTE | 2023-05-30 10:23 | PM.IMPN ---
Progress Note: A&P Assessment and Plan (1) Acute respiratory failure with hypoxia and hypercapnia: Code(s): J96.01 - Acute respiratory failure with hypoxia; J96.02 - Acute respiratory failure with hypercapnia Status: Acute (2) Acute respiratory distress: Code(s): R06.03 - Acute respiratory distress Status: Inactive (3) Acute respiratory failure with hypoxia: Code(s): J96.01 - Acute respiratory failure with hypoxia Status: Acute (4) Bilateral pneumonia: Code(s): J18.9 - Pneumonia, unspecified organism Status: Acute (5) COPD (chronic obstructive pulmonary disease): Code(s): J44.9 - Chronic obstructive pulmonary disease, unspecified Status: Acute (6) Leukocytosis: Code(s): D72.829 - Elevated white blood cell count, unspecified Status: Acute (7) Protein calorie malnutrition: Code(s): E46 - Unspecified protein-calorie malnutrition Status: Acute (8) Impaired ambulation: Code(s): R26.2 - Difficulty in walking, not elsewhere classified Status: Acute Plan Patient has X-ray and clinical findings consistent with bilateral pneumonia Patient started on IV antibiotics in the form of Rocephin and Zithromax Follow-up on blood and sputum cultures sent from ER continue Oxygen via nasal cannula to keep O2 sats around 94% Patient received IV Solu-Medrol 125 mg IV x1 dose in the ER start on oral prednisone Continue with the DuoNeb breathing treatments on the floor as needed DC IV fluid PT/OT evaluation ordered DC patient on oral antibiotics when patient is clinically stable and breathing is back to her baseline Subjective Date/time seen: 05/30/23 10:23 Interval history: patient is wheezing. States she feels a little better Review of Systems Review of Systems: All systems reviewed & are unremarkable except as noted in HPI and below Exam Narrative: General physical exam: patient feels very tired and fatigued, using BiPAP in the ER while sitting in bed Head/eyes: Atraumatic, EOMI, PERRLA ENT: Moist mucous membranes, nasal passages clear Neck: Supple, full range of motion, trachea midline CVS: S1 + S2 + 0, regular rate and rhythm, no murmurs Respiratory: Bilaterally poor air entry in both lung arango, no wheezing heard Abdomen: Soft, non-tender, bowel sounds +ve, no organomegaly Extremities: No clubbing, no cyanosis, no edema, no calf tenderness Musculoskeletal: Moves all, adequate range of motion, no muscle spasms Skin: Warm, dry, no jaundice, no cyanosis Neurological: Awake, alert, cranial nerves II-XII intact, no focal neurological deficits Psychiatric: Normal mood, non suicidal Objective Data Vital Signs Vital Signs: Vital Signs - 24 hr 05/29/23 18:10 05/29/23 18:16 05/29/23 18:15 Temperature 98.3 F Pulse Rate 115 H 111 H Respiratory Rate 32 H 25 H Blood Pressure 118/82 137/77 Pulse Oximetry 98 98 Oxygen Delivery CPAP BiPAP Oxygen Flow Rate Fraction of Inspired Oxygen 05/29/23 18:30 05/29/23 18:54 05/29/23 21:39 Temperature Pulse Rate 110 H 112 H 107 H Respiratory Rate 27 H 32 H 21 H Blood Pressure 119/81 Pulse Oximetry 97 98 Oxygen Delivery BiPAP Oxygen Flow Rate Fraction of Inspired Oxygen 05/29/23 22:26 05/29/23 22:45 05/29/23 21:55 Temperature 97.1 F L Pulse Rate 117 H 114 H 113 H Respiratory Rate 23 H 27 H 26 H Blood Pressure 131/87 127/71 Pulse Oximetry 97 93 93 Oxygen Delivery BiPAP Oxygen Flow Rate Fraction of Inspired Oxygen 05/30/23 00:00 05/30/23 00:00 05/30/23 00:21 Temperature Pulse Rate 109 H 103 H Respiratory Rate 23 H Blood Pressure Pulse Oximetry 93 93 Oxygen Delivery BiPAP BiPAP Oxygen Flow Rate Fraction of Inspired Oxygen 35 05/30/23 01:55 05/30/23 02:01 05/30/23 03:50 Temperature Pulse Rate 106 H 104 H 102 H Respiratory Rate 21 H 19 18 Blood Pressure Pulse Oximetry 96 Oxygen Delive
[2023-05-30] MEDS: MORPHINE SULFATE (*CRX) 4 MG/ML INJ 1 MG IV PUSH (13:06)
[2023-05-30] MEDS: MORPHINE SULFATE (*CRX) 2 MG/ML INJ 1 MG IV PUSH (20:34)
[2023-05-30] MEDS: AZITHROMYCIN 500 MG/NS 250 ML 500 MG/250 ML BAG 250 MG IVPB (22:44)
[2023-05-31] VITALS (17 sets, daily range): BP systolic 124–147; BP diastolic 76–88; PULSE 82–118; RESP 16–24; TEMP 36–36.4; O2SAT 85–98
[2023-05-31] MEDS: ALBUTEROL SULFATE NEB 2.5 MG/3 ML INH INHALATION ×2 (02:11→08:02)
[2023-05-31] MEDS: IPRATROPIUM BR 0.02% INH SOLN 0.5 MG/2.5 ML VIAL INHALATION ×2 (02:11→08:02)
[2023-05-31 05:59] LABS: Basophils Absolute Auto 0.1 K/mm3 (0.0-0.1); Basophils Percent Auto 0.4 % (0.2-1.2); Eosinophils Absolute Auto 0.1 K/mm3 (0-0.3); Eosinophils Percent Auto 0.2 % (0-4.4); Hematocrit 38.7 % (37.0-47.0); Hemoglobin 12.3 g/dL (12.0-15.0); Immature Granulocyte Absolute 0.09 K/mm3 (0.00-0.031); Immature Granulocyte Percent A 0.4 % (0-0.5); Lymphocytes Absolute Auto 5.09 K/mm3 (0.9-3.2); Lymphocytes Percent Auto 24.9 % (18.3-44.2); Mean Corpuscular HGB Conc 31.8 g/dl (32-36); Mean Corpuscular Hemoglobin 29.1 pg (26-34); Mean Corpuscular Volume 91.7 fl (80-100); Mean Platelet Volume 9.9 fl (7.4-10.4); Monocytes Absolute Auto 1.5 K/mm3 (0.1-0.6); Monocytes Percent Auto 7.2 % (2.6-8.5); Neutrophils Absolute Auto 13.7 K/mm3 (1.3-6.7); Neutrophils Percent Auto 66.9 % (45.5-73.1); Platelet Count Result 454 k/mm3 (150-375); Red Blood Count 4.22 M/mm3 (4.2-5.4); Red Cell Distribution Width 13.3 % (11.5-14.5); White Blood Count 20.4 K/mm3 (4.5-10.0)
[2023-05-31 06:28] LABS: Anion Gap 2 mmol/L (8-16); Blood Urea Nitrogen 25 mg/dL (7-17); Calcium 8.4 mg/dL (8.4-10.2); Carbon Dioxide 26 mmol/L (22-30); Chloride 108 mmol/L (98-107); Estimated CRCL calculation 56 ml/min; Estimated Glomerular Filt Rate > 60; Glucose 102 mg/dL (65-110); Potassium 4.2 mmol/L (3.4-5.0); Sodium 136 mmol/L (137-145)
[2023-05-31] MEDS: ENOXAPARIN 40 MG/0.4 ML SYRINGE SUB-Q (09:02)
[2023-05-31] MEDS: predniSONE 20 MG TABLET 40 MG PO (09:02)
[2023-05-31] MEDS: FLUTICASONE PROPIONATE 0.05% NA SPR 16 GM BTL (*BKC) 2 SPRAY NASAL (09:02)
[2023-05-31] MEDS: busPIRone HCL 5 MG TABLET 15 MG PO (09:02)
[2023-05-31] MEDS: MONTELUKAST SODIUM 10 MG TABLET PO (09:02)
--- NOTE | 2023-05-31 11:06 | PC.NURSE ---
Patient notified of risks of leaving AMA. [Qian was] notified. Patient signed AMA form. PIV removed from pt. prior to pt leaving
--- NOTE | 2023-05-31 11:11 | PC.NURSE ---
Dr. Laughlin initiated call with this RN regarding pt leaving AMA. Pt was walking past the nursing station as RN was on the phone with provider. RN spoke with pt and pt's regarding MD's concerns. MD wanting pt to have home O2 evaluation completed prior to leaving, since pt's O2 drops into the 80's while on room air with activity. MD in agreement with pt being discharged after home O2 evaluation is completed and arranged. MD ok with pt leaving personnel monitor off and IV out.
--- NOTE | 2023-05-31 11:24 | PM.DS ---
DS: Admitting Diagnosis Discharge Date 05/31/23 Admitting Diagnosis Shortness of breath DS: Discharge Diagnosis Discharge Diagnosis (1) Acute respiratory failure with hypoxia and hypercapnia: Code(s): J96.01 - Acute respiratory failure with hypoxia; J96.02 - Acute respiratory failure with hypercapnia Status: Acute (2) Acute respiratory distress: Code(s): R06.03 - Acute respiratory distress Status: Inactive (3) Acute respiratory failure with hypoxia: Code(s): J96.01 - Acute respiratory failure with hypoxia Status: Acute (4) Bilateral pneumonia: Code(s): J18.9 - Pneumonia, unspecified organism Status: Acute (5) COPD (chronic obstructive pulmonary disease): Code(s): J44.9 - Chronic obstructive pulmonary disease, unspecified Status: Acute (6) Leukocytosis: Code(s): D72.829 - Elevated white blood cell count, unspecified Status: Acute (7) Protein calorie malnutrition: Code(s): E46 - Unspecified protein-calorie malnutrition Status: Acute (8) Impaired ambulation: Code(s): R26.2 - Difficulty in walking, not elsewhere classified Status: Acute DS: Summary Hospital Course Hospital Course: Patient has X-ray and clinical findings consistent with bilateral pneumonia. Patient started on IV antibiotics in the form of Rocephin and Zithromax? Follow-up on blood and sputum cultures sent from ER were negative ?continue Oxygen via nasal cannula to keep O2 sats around 94% Patient received? IV Solu-Medrol 125 mg IV x1 dose in the ER and was switched to oral prednisone Continue with the DuoNeb breathing treatments on the floor as needed DC IV fluid PT/OT evaluation ordered and evaluated was independent Patient was advised to stay until more improvement however adamant of leaving. She was evaluated by the pulmonary rehab and required oxygen with activity which was arranged at the time of discharge. She will go home on oral antibiotics and prednisone taper. Time Spent with Patient Time attestation: Total time spent providing and/or coordinating discharge services: 35 minutes Exam Narrative: General physical exam: patient feels very tired and fatigued, not in acute distress Head/eyes: Atraumatic, EOMI, PERRLA ENT: Moist mucous membranes, nasal passages clear Neck: Supple, full range of motion, trachea midline CVS: S1 + S2 + 0, regular rate and rhythm, no murmurs Respiratory: Bilaterally poor air entry in both lung arango, no wheezing heard Abdomen: Soft, non-tender, bowel sounds +ve, no organomegaly Extremities: No clubbing, no cyanosis, no edema, no calf tenderness Musculoskeletal: Moves all, adequate range of motion, no muscle spasms Skin: Warm, dry, no jaundice, no cyanosis Neurological: Awake, alert, cranial nerves II-XII intact, no focal neurological deficits Psychiatric: Normal mood, non suicidal DS: Data Data Completed and Pending Labs on day of discharge: Preliminary micro results at discharge 05/29/23 20:16 Blood Culture - Preliminary Blood 05/29/23 20:15 Blood Culture - Preliminary Blood Imaging Radiologist's impression: ITS Impressions Chest X-Ray 05/29/23 18:47 IMPRESSION: Patchy infiltrate in the right mid and both lower lung zones; diffusion diagnosis includes bilateral pneumonia, 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
--- NOTE | 2023-05-31 11:58 | HOMEO2EVAL ---
Evaluation was performed at [facility] Home Oxygen Evaluation RC: Home Oxygen (O2) Evaluation Start: 05/31/23 11:13 Freq: ONCE Status: Active Protocol: RPE Activity Type Activity Date Activity User E-sign Co-sign Detail Recorded Client Recorded Date Recorded By Document 05/31/23 11:30 CYNTHIA [email or web address] 05/31/23 11:58 CYNTHIA Document 05/31/23 11:33 CYNTHIA [email or web address] 05/31/23 11:58 CYNTHIA Document 05/31/23 11:34 CYNTHIA [email or web address] 05/31/23 11:58 CYNTHIA Document 05/31/23 11:35 CYNTHIA [email or web address] 05/31/23 11:58 CYNTHIA Document 05/31/23 11:36 CYNTHIA [email or web address] 05/31/23 11:58 CYNTHIA Document 05/31/23 11:45 CYNTHIA [email or web address] 05/31/23 11:58 CYNTHIA 05/31/23 05/31/23 05/31/23 11:30 11:33 11:34 Home O2 Evaluation [Oxygen] -Test Phase Resting Exercise Exercise -Oxygen Delivery Room Air Room Air Nasal Cannula -Oxygen Flow Rate (L/min) 1 [Pulse Oximetry] -Pulse Oximetry (90-100 %) 95 85 L 86 L [Pulse Rate] -Pulse Rate (60-100 beats/min) 82 [Comments] -Home Oxygen Evaluation Comments [Charges] -Treatment Charges O2 Evaluation - Inpatient 05/31/23 05/31/23 05/31/23 11:35 11:36 11:45 Home O2 Evaluation [Oxygen] -Test Phase Exercise Exercise Resting -Oxygen Delivery Nasal Cannula Nasal Cannula Room Air -Oxygen Flow Rate (L/min) 2 3 [Pulse Oximetry] -Pulse Oximetry (90-100 %) 87 L 90 95 [Pulse Rate] -Pulse Rate (60-100 beats/min) 106 H 85 [Comments] -Home Oxygen Evaluation Comments PATIENT REQUIRES 3 L HOME O2 WITH ACTIVITY [Charges] -Treatment Charges
== END 2023-05-31 13:01 | disposition home or self-care (01) | DRG 139 ==
LOC: ANHED 21:09 → ANHIMU 22:33
PROVIDERS: Admitting Provider Family Medicine; Emergency Provider General Practice; PCP Family Medicine; Visit Provider Internal Medicine
DX: J18.9 Pneumonia, unspecified organism (principal); J96.01 Acute respiratory failure with hypoxia; J96.02 Acute respiratory failure with hypercapnia; J44.0 Chronic obstructive pulmonary disease with (acute) lower respiratory infection; E46 Unspecified protein-calorie malnutrition; F17.210 Nicotine dependence, cigarettes, uncomplicated; F32.A Depression, unspecified; Z86.711 Personal history of pulmonary embolism; Z86.718 Personal history of other venous thrombosis and embolism; Z90.49 Acquired absence of other specified parts of digestive tract; Z90.710 Acquired absence of both cervix and uterus; Z68.1 Body mass index [BMI] 19.9 or less, adult
CPT/HCPCS: 36415; 36600; 71045; 80048; 80053; 82375; 82805; 83050; 83605; 83690; 83735; 83880; 84484; 85025; 85610; 85730; 87040; 87635; 93005; 94002; 94618; 94640; 96374; 97161; 97165; 99285; A9270; J0456; J0696; J1650; J2270; J2930; J7030; J7512